=== PATIENT | female | born 1945 | race Caucasian/White ===

== ENCOUNTER 2016-04-11 09:38 | Outpatient (CLI) | payer OTHER, BC | END 2016-04-11 18:56 | disposition home or self-care (01) | LOC: SMA 09:38 | PROVIDERS: ATTEND Obstetrics & Gynecology Gynecology | DX: N63 Unspecified lump in breast (principal); N60.01 Solitary cyst of right breast; N60.02 Solitary cyst of left breast | CPT/HCPCS: 76641; G0204; G0206 ==

== ENCOUNTER 2017-04-10 10:26 | Outpatient (CLI) | payer OTHER, BC | END 2017-04-10 18:40 | disposition home or self-care (01) | LOC: SMA 10:26 | PROVIDERS: ATTEND Obstetrics & Gynecology Gynecology | DX: N60.02 Solitary cyst of left breast (principal); N60.01 Solitary cyst of right breast | CPT/HCPCS: 76641; 77066 ==

== ENCOUNTER 2018-04-16 12:28 | Outpatient (CLI) | payer OTHER, BC | END 2018-04-16 21:10 | disposition home or self-care (01) | LOC: SMA 12:28 | PROVIDERS: ATTEND Obstetrics & Gynecology Gynecology | DX: N60.01 Solitary cyst of right breast (principal); N60.02 Solitary cyst of left breast | CPT/HCPCS: 76641; 77066 ==

== ENCOUNTER 2019-04-22 13:46 | Outpatient (CLI) | payer OTHER, BC | END 2019-04-22 19:38 | disposition home or self-care (01) | LOC: SMA 13:46 | DX: N63.12 Unspecified lump in the right breast, upper inner quadrant (principal); N63.21 Unspecified lump in the left breast, upper outer quadrant | CPT/HCPCS: 76641; 77066 ==

== ENCOUNTER 2020-05-08 14:25 | Outpatient (CLI) | payer OTHER, BC | END 2020-05-08 20:42 | disposition home or self-care (01) | LOC: SMA 14:25 | PROVIDERS: ATTEND Obstetrics & Gynecology Gynecology | DX: N60.02 Solitary cyst of left breast (principal); N60.01 Solitary cyst of right breast; R92.2 Inconclusive mammogram | CPT/HCPCS: 76641; 77066 ==

== ENCOUNTER 2021-07-24 10:44 | Outpatient (CLI) | payer OTHER, BC | END 2021-07-24 19:59 | disposition home or self-care (01) | LOC: SMA 10:44 | PROVIDERS: ATTEND Obstetrics & Gynecology Gynecology | DX: N63.14 Unspecified lump in the right breast, lower inner quadrant (principal); N63.22 Unspecified lump in the left breast, upper inner quadrant; N60.01 Solitary cyst of right breast; N60.02 Solitary cyst of left breast; R92.2 Inconclusive mammogram | CPT/HCPCS: 76641; 77066 ==

== ENCOUNTER 2022-05-31 11:31 | Outpatient (CLI) | payer OTHER, BC | END 2022-05-31 19:08 | disposition home or self-care (01) | LOC: SUS 11:31 | PROVIDERS: ATTEND Obstetrics & Gynecology Gynecology | DX: Z12.31 Encounter for screening mammogram for malignant neoplasm of breast (principal); N60.01 Solitary cyst of right breast; N60.02 Solitary cyst of left breast; N64.89 Other specified disorders of breast | CPT/HCPCS: 76641; 77067 ==